=== PATIENT | female | born 1995 | race Caucasian/White ===

== ENCOUNTER 2017-01-19 17:47 | Emergency (ER) | payer BC ==
[2017-01-19] MEDS ORDERED: OXYCODONE-ACETAMINOPHEN 5-325 MG TABLET PO ONE (18:21)
[2017-01-19] MEDS ORDERED: ONDANSETRON 4 MG TAB.RAPDIS SL ONE (18:21)
--- NOTE | 2017-01-19 18:23 | ER Document Report ---
ED Medical Screen (RME) - General Chief Complaint: Abdominal Pain Stated Complaint: ABDOMINAL PAIN Time Seen by Provider: 01/19/17 18:19 Mode of Arrival: Ambulatory Information source: Patient TRAVEL OUTSIDE OF THE [place] IN LAST 30 DAYS: No - HPI Patient complains to provider of: Abdominal pain, nausea and vomiting Onset: Yesterday Onset/Duration: Persistent Quality of pain: Achy, Cramping Severity: Moderate Pain Level: 3 Associated Symptoms: Nausea, Vomiting Exacerbated by: Denies Relieved by: Denies Notes: 01/19/17 18:22 Patient is a 21-year-old female who presents to the emergency room with abdominal pain with nausea and vomiting that started yesterday evening, she reports pain in the suprapubic region radiating bilaterally, she has history of kidney stones but states this feels different, denies any dysuria or hematuria, no diarrhea - Related Data Allergies/Adverse Reactions: amoxicillin Allergy (Verified 01/19/17 17:49) doxycycline Allergy (Verified 01/19/17 17:49) milk Allergy (Verified 01/19/17 17:49) Past Medical History Renal/ Medical History: Denies: Hx Peritoneal Dialysis Physical Exam - Vital signs Vitals: Temp Pulse Resp BP Pulse Ox 98.6 F 102 H 17 119/72 99 01/19/17 17:49 01/19/17 17:49 01/19/17 17:49 01/19/17 17:49 01/19/17 17:49 Course - Vital Signs Vital signs: Temp Pulse Resp BP Pulse Ox 98.6 F 102 H 17 119/72 99 01/19/17 17:49 01/19/17 17:49 01/19/17 17:49 01/19/17 17:49 01/19/17 17:49
[2017-01-19 18:51] LABS: ABSOLUTE LYMPHOCYTES (AUTO) 0.6 10^3/uL (0.5-4.7); ABSOLUTE MONOCYTES (AUTO) 0.4 10^3/uL (0.1-1.4); ABSOLUTE NEUT (AUTO) 8.5 10^3/uL (1.7-8.2); BASOPHILS % (AUTO) 0.3 % (0-2); EOSINOPHILS % (AUTO) 0.2 % (0-6); LYMPHOCYTES % (AUTO) 5.8 % (13-45); MEAN CORPUSCULAR HEMOGLOBIN 30.4 pg (27.0-33.4); MEAN CORPUSCULAR HGB CONC 34.1 g/dL (32.0-36.0); MEAN CORPUSCULAR VOLUME 89 fl (80-97); MONOCYTES % (AUTO) 4.6 % (3-13); RED BLOOD COUNT 4.92 10^6/uL (3.72-5.28); RED CELL DISTRIBUTION WIDTH 13.4 % (11.5-14.0); SEGMENTED NEUTROPHILS % (AUTO) 89.1 % (42-78); WHITE BLOOD COUNT 9.6 10^3/uL (4.0-10.5)
[2017-01-19 19:11] LABS: ALANINE AMINOTRANSFERASE 39 U/L (9-52); ALBUMIN 4.8 g/dL (3.5-5.0); ALKALINE PHOSPHATASE 62 U/L (38-126); ANION GAP 12 (5-19); ASPARTATE AMINO TRANSFERASE 35 U/L (14-36); BILIRUBIN,DIRECT 0.3 mg/dL (0.0-0.4); BILIRUBIN,TOTAL 1.1 mg/dL (0.2-1.3); BLOOD UREA NITROGEN 14 mg/dL (7-20); CALCIUM 9.9 mg/dL (8.4-10.2); CARBON DIOXIDE 26 mmol/L (22-30); CHLORIDE 102 mmol/L (98-107); GLUCOSE 88 mg/dL (75-110); LIPASE 56.3 U/L (23-300); POTASSIUM 3.9 mmol/L (3.6-5.0); SODIUM 140.1 mmol/L (137-145); TOTAL PROTEIN 7.7 g/dL (6.3-8.2)
[2017-01-19 19:19] LABS: APPEARANCE,URINE SLIGHTLY-CLOUDY; BILIRUBIN,URINE NEGATIVE (NEGATIVE); GLUCOSE, URINE NEGATIVE (NEGATIVE); KETONES,URINE TRACE mg/dL (NEGATIVE); LEUKOCYTE ESTERASE,URINE MODERATE (NEGATIVE); NITRITE,URINE NEGATIVE (NEGATIVE); PROTEIN,URINE NEGATIVE (NEGATIVE); URINE SPECIFIC GRAVITY 1.031; UROBILINOGEN,URINE NEGATIVE mg/dL (<2.0)
--- NOTE | 2017-01-19 20:41 | ER Document Report ---
ED General - General Chief Complaint: Abdominal Pain Stated Complaint: ABDOMINAL PAIN Time Seen by Provider: 01/19/17 18:19 Mode of Arrival: Ambulatory Notes: Patient is a 21-year-old female without past medical history who presents with 2 days of progressively worsening lower abdominal pain. Does describe it as a dull, constant, burning, aching pain in her suprapubic region. Nothing improves or worsens the pain. Denies any history of similar symptoms in the past. Denies any vaginal bleeding, discharge, dysuria, or risks for sexually transmitted infections. She has never had similar symptoms in the past. She is visiting from out of town and has not been able to see her primary doctor regarding today's concerns. She has not had any associated vomiting or diarrhea. TRAVEL OUTSIDE OF THE [place] IN LAST 30 DAYS: No - Related Data Allergies/Adverse Reactions: amoxicillin Allergy (Verified 01/19/17 17:49) doxycycline Allergy (Verified 01/19/17 17:49) milk Allergy (Verified 01/19/17 17:49) Past Medical History - General Information source: Patient - Social History Smoking Status: Never Smoker Chew tobacco use (# tins/day): No Frequency of alcohol use: None Drug Abuse: None Lives with: Spouse/Significant other Family History: Reviewed & Not Pertinent Patient has suicidal ideation: No Patient has homicidal ideation: No Renal/ Medical History: Denies: Hx Peritoneal Dialysis Surgical Hx: Negative Review of Systems - Review of Systems Notes: Constitutional: Negative for fever. HENT: Negative for sore throat. Eyes: Negative for visual changes. Cardiovascular: Negative for chest pain. Respiratory: Negative for shortness of breath. Gastrointestinal: Positive for abdominal pain, negative for vomiting or diarrhea. Genitourinary: Negative for dysuria. Musculoskeletal: Negative for back pain. Skin: Negative for rash. Neurological: Negative for headaches, weakness or numbness. 10 point ROS negative except as marked above and in HPI. Physical Exam - Vital signs Vitals: Temp Pulse Resp BP Pulse Ox 98.6 F 102 H 17 119/72 99 01/19/17 17:49 01/19/17 17:49 01/19/17 17:49 01/19/17 17:49 01/19/17 17:49 Interpretation: Tachycardic Notes: PHYSICAL EXAMINATION: GENERAL: Well-appearing, well-nourished and in no acute distress. HEAD: Atraumatic, normocephalic. EYES: Pupils equal round and reactive to light, extraocular movements intact, sclera anicteric, conjunctiva are normal. ENT: nares patent, oropharynx clear without exudates. Moist mucous membranes. NECK: Normal range of motion, supple without lymphadenopathy LUNGS: Breath sounds clear to auscultation bilaterally and equal. No wheezes rales or rhonchi. HEART: Regular rate and rhythm without murmurs ABDOMEN: Soft, mild significant abdominal tenderness to palpation. No rebound or guarding. Back: No cervical motion tenderness. No focal adnexal tenderness. Mild suprapubic abdominal tenderness. Scant white vaginal discharge EXTREMITIES: Normal range of motion, no pitting or edema. No cyanosis. NEUROLOGICAL: No focal neurological deficits. Moves all extremities spontaneously and on command. PSYCH: Normal mood, normal affect. SKIN: Warm, Dry, normal turgor, no rashes or lesions noted. Course - Re-evaluation Re-evalutation: 01/19/17 21:29 Patient is an overall well-appearing female in no acute distress at time of assessment some mild suprapubic abdominal tenderness. On pelvic examination she has again mild duplicate tenderness without any focal adnexal tenderness. No cervical motion tenderness. However, her swabs are positive for chlamydia raising concern that this could be pelvic inflammatory disease in the setting of the sexually transmitted infection. She has no focal right lower quadrant tenderness, rebound or guarding. Remainder of her laboratories unremarkable without evidence of leukocytosis. No upper abdominal pain to suggest either pancreatitis or biliary pathology. She is not and her urinalysis does not demonstrate any findings consistent with cystitis or pyelonephritis. After pelvic examination risks and benefits conversational proceeding with CT of the abdomen and pelvis to identify alternative pathology including possibly an early presentation of appendicitis was discussed at length with the patient. She elected to proceed with a CT of the abdomen and pelvis. Unfortunately the CT scan could not definitively identify the appendix. However there are no definitive secondary signs of appendicitis. At this time Elbow clinical suspicion for an acute appendicitis is low as patient does not have any focal right lower quadrant tenderness, no fever, and no leukocytosis. Have informed the patient that her appendix was not definitively identified and that she needs to continue to be vigilant at home for any signs that she could be progressing to this diagnosis. I have also instructed her to take the antibiotics as directed and she will be treated with both azithromycin and ceftriaxone prior to discharge as well as a course of Flagyl as an outpatient. She has a true allergy to doxycycline so this is not an option. At this time will discharge with return precautions and follow-up recommendations. Verbal discharge instructions given a the bedside and opportunity for questions given. Medication warnings reviewed. Patient is in agreement with this plan and has verbalized understanding of return precautions and the need for primary care follow-up in the next 24-72 hours. - Vital Signs Vital signs: Temp Pulse Resp BP Pulse Ox 98.6 F 102 H 17 119/72 99 01/19/17 17:49 01/19/17 17:49 01/19/17 17:49 01/19/17 17:49 01/19/17 17:49 - Laboratory Result Diagrams: 01/19/17 18:35 01/19/17 18:35 Laboratory results interpreted by me: 01/19/17 01/19/17 01/19/17 18:35 18:35 19:44 Seg Neutrophils % 89.1 H Lymphocytes % 5.8 L Absolute Neutrophils 8.5 H Urine Ketones TRACE H Ur Leukocyte Esterase MODERATE H Chlamydia DNA (PCR) DETECTED H - Diagnostic Test Radiology reviewed: Reports reviewed Discharge - Discharge Clinical Impression: Pelvic inflammatory disease, Chlamydia Abdominal pain Qualifiers: Abdominal location: lower abdomen, unspecified Qualified Code(s): R10.30 - Lower abdominal pain, unspecified Condition: Good Disposition: HOME, SELF-CARE Instructions: Observation for Appendicitis ([facility]) Additional Instructions: Your are being treated for pelvic inflammatory disease. You are being started on 2 different antibiotics and you need to take these until you finish them. Please return if you have worsening pain, persistent vomiting, spike a fever greater than 101F, or have any other symptoms that are concerning to you. Please follow closely with you primary care physician or your PLASTIC BOAT BUFFER at your earliest ability. Please also be vigilant about monitoring for signs that she could have appendicitis including worsening abdominal pain, fever, vomiting or any other symptoms that are worrisome to you. Prescriptions: Metronidazole [Flagyl 500 mg Tablet] 500 mg PO Q6H #28 tablet
[2017-01-19 21:25] LABS: CHLAM PCR DETECTED (NOT DETECT)
--- NOTE | 2017-01-19 21:26 | RADIOLOGY REPORT (SQ) ---
EXAM DESCRIPTION: CT ABD/PELVIS WITH IV ONLY COMPLETED DATE/TIME: 01/19/2017 8:59 pm REASON FOR STUDY: eval lower ab pain, appy COMPARISON: None. TECHNIQUE: CT scan of the abdomen and pelvis performed using helical scanning technique with dynamic intravenous contrast injection. No oral contrast. Images reviewed with lung, soft tissue, and bone windows. Reconstructed coronal and sagittal MPR images reviewed. Delayed images for evaluation of the urinary system also acquired. All images stored on PACS. All CT scanners at this facility use dose modulation, iterative reconstruction, and/or weight based d osing when appropriate to reduce radiation dose to as low as reasonably achievable (ALARA). [facility]: Dose Right [facility]: CareDose [facility]: Dose Right [facility]: Teradose 4D [facility]: HotDesk CONTRAST TYPE AND DOSE: 66mL Isovue 370 RENAL FUNCTION: Creatinine 0.70 RADIATION DOSE: 12.03mGy. LIMITATIONS: Study is limited somewhat due to the relative paucity of mesenteric and retroperitoneal fat making delineation of abdominal and pelvic structures somewhat difficult FINDINGS: LOWER CHEST: No significant findings. No nodules or infiltrates. LIVER: Normal size. No masses or dilated ducts. SPLEEN: Normal size. No focal lesions. PANCREAS: No masses. No significant calcifications. No adjacent inflammation or peripancreatic fluid collections. Pancreatic duct not dilated. GALLBLADDER: No identified stones by CT criteria. No inflammatory changes to suggest cholecystitis. ADRENAL GLANDS: No significant masses or asymmetry. RIGHT KIDNEY AND URETER: There is a 1.5 cm in diameter indeterminate relative low density area which is too small to further characterize by CT. If clinically warranted ultrasound may be of value for f urther evaluation. No significant calcifications. No hydronephrosis or hydroureter. LEFT KIDNEY AND URETER: No solid masses. No significant calcifications. No hydronephrosis or hydr oureter. AORTA AND VESSELS: No aneurysm. No dissection. Renal arteries, SMA, celiac without stenosis. RETROPERITONEUM: No retroperitoneal adenopathy, hemorrhage or masses. BOWEL AND PERITONEAL CAVITY: No masses or inflammatory changes. No free fluid or peritoneal masses. APPENDIX: Not identified PELVIS: No mass or free fluid. Normal bladder. ABDOMINAL WALL: No masses. No hernias. BONES: No significant or acute findings. OTHER: No other significant finding. IMPRESSION: The appendix is not definitely identified. There are no secondary signs of appendicitis . 1.5 cm in diameter indeterminate relative low density area in the right kidney which is too small to further characterize by CT. If clinically warranted ultrasound may be of value for further evalua tion. Other findings as noted above TECHNICAL DOCUMENTATION: JOB ID: [id number] Quality ID # [id number]: Final reports with documentation of one or more dose reduction techniques (e.g., Au tomated exposure control, adjustment of the mA and/or kV according to patient size, use of iterative reconstruction technique) 2010 [employer]- All Rights Reserved
[2017-01-19] MEDS ORDERED: CEFTRIAXONE INJ 250 MG VIAL IM ONE (21:38)
[2017-01-19] MEDS ORDERED: LIDOCAINE 1% INJ-PF (10 MG/ML) 30 ML SDV INFIL ONE (21:38)
[2017-01-19] MEDS ORDERED: AZITHROMYCIN 250 MG TABLET PO ONE (21:38)
[2017-01-19 22:49] VITALS: BP 116/70
== END 2017-01-19 22:09 | disposition home or self-care (01) ==
LOC: ER 17:47
DX: A56.11 Chlamydial female pelvic inflammatory disease (principal); R10.30 Lower abdominal pain, unspecified; R00.0 Tachycardia, unspecified; Z88.0 Allergy status to penicillin; Z91.011 Allergy to milk products
CPT/HCPCS: 99284; 96372; 36415; 87086; 87210; 83690; 84703; 85025; 80053; 81001; 87491; 87591; 74177; S0119; J3490; J0696

== ENCOUNTER 2017-04-17 13:15 | Emergency (ER) | payer BC ==
--- NOTE | 2017-04-17 14:31 | ER Document Report ---
HPI - HPI Patient complains to provider of: nausea Pain Level: 0 Context: 21 yo female c/o nausea x several days. no abdominal pain Associated Symptoms: None Exacerbated by: Denies Relieved by: Denies Similar symptoms previously: No Recently seen / treated by doctor: No - ROS Systems Reviewed and Negative: Yes All other systems reviewed and negative - DERM Skin Color: Normal Past Medical History - General Information source: Patient - Social History Smoking Status: Never Smoker Frequency of alcohol use: None Drug Abuse: None Lives with: Family Family History: Reviewed & Not Pertinent Patient has suicidal ideation: No Patient has homicidal ideation: No - Medical History Medical History: Negative Renal/ Medical History: Denies: Hx Peritoneal Dialysis Vertical Provider Document - CONSTITUTIONAL Agree With Documented VS: Yes Exam Limitations: No Limitations General Appearance: WD/WN, No Apparent Distress - INFECTION CONTROL TRAVEL OUTSIDE OF THE [place] IN LAST 30 DAYS: No - HEENT HEENT: Atraumatic, Conjuctival Injection - NECK Neck: Normal Inspection, Supple - RESPIRATORY Respiratory: Breath Sounds Normal, No Respiratory Distress - CARDIOVASCULAR Cardiovascular: Regular Rate, Regular Rhythm - GI/ABDOMEN Gastrointestinal: Abdomen Soft, Abdomen Non-Tender - NEURO Level of Consciousness: Awake, Alert, Appropriate - DERM Integumentary: Warm, Dry, No Rash Discharge - Discharge Clinical Impression: Nausea Condition: Stable Disposition: HOME, SELF-CARE Instructions: Nausea or Vomiting, Nonspecific ([facility]) Additional Instructions: Your test was negative today Maury diet as tolerated Follow up with your primary care if symptoms persist Prescriptions: Ondansetron HCl [Zofran 8 mg Tablet] 8 mg PO TID PRN #10 tablet PRN Reason:
[2017-04-17 15:58] VITALS: BP 108/57
== END 2017-04-17 15:58 | disposition home or self-care (01) ==
LOC: ER 13:15
DX: R11.0 Nausea (principal)
CPT/HCPCS: 36415; 84703; 99281

== ENCOUNTER 2017-06-25 19:21 | Emergency (ER) | payer BC, OTHER ==
[2017-06-25 20:52] LABS: AMORPHOUS SEDIMENT,URINE TRACE /HPF; APPEARANCE,URINE SLIGHTLY-CLOUDY; BILIRUBIN,URINE NEGATIVE (NEGATIVE); GLUCOSE, URINE NEGATIVE (NEGATIVE); KETONES,URINE NEGATIVE (NEGATIVE); LEUKOCYTE ESTERASE,URINE TRACE (NEGATIVE); NITRITE,URINE NEGATIVE (NEGATIVE); PROTEIN,URINE NEGATIVE (NEGATIVE); URINE SPECIFIC GRAVITY 1.025; UROBILINOGEN,URINE NEGATIVE mg/dL (<2.0)
--- NOTE | 2017-06-25 20:52 | ER Document Report ---
ED General - General Chief Complaint: Nausea/Vomiting/Diarrhea Stated Complaint: VOMITING Time Seen by Provider: 06/25/17 20:15 Mode of Arrival: Ambulatory Information source: Patient Notes: Patient presents stating that she developed nausea vomiting and some loose stool after eating [place]uvian food today. She states her had similar symptoms. She also had some mild diffuse abdominal cramping. She states she is now feeling better and is been able to tolerate fluids. Nothing made the pain better or worse. There is no radiation of the symptoms. Symptoms have been constant and moderate although they are improving. She denies any vaginal bleeding or discharge. TRAVEL OUTSIDE OF THE [place] IN LAST 30 DAYS: No - Related Data Allergies/Adverse Reactions: amoxicillin Allergy (Verified 04/17/17 13:49) doxycycline Allergy (Verified 04/17/17 13:49) milk Allergy (Verified 04/17/17 13:49) Past Medical History - General Information source: Patient - Social History Smoking Status: Never Smoker Chew tobacco use (# tins/day): No Frequency of alcohol use: None Drug Abuse: None Family History: Reviewed & Not Pertinent Patient has suicidal ideation: No Patient has homicidal ideation: No Renal/ Medical History: Reports: Hx Kidney Stones. Denies: Hx Peritoneal Dialysis Past Surgical History: Reports: Hx Tonsillectomy - Immunizations Hx Diphtheria, Pertussis, Tetanus Vaccination: Yes Review of Systems - Review of Systems Constitutional: denies: Chills, Fever Cardiovascular: denies: Chest pain, Dyspnea Respiratory: denies: Cough, Short of breath Gastrointestinal: Nausea, Vomiting -: Yes All other systems reviewed and negative Physical Exam - Vital signs Vitals: Temp Pulse Resp BP Pulse Ox 98.7 F 89 20 127/74 H 100 06/25/17 19:49 06/25/17 19:49 06/25/17 19:49 06/25/17 19:49 06/25/17 19:49 Interpretation: Normal - General General appearance: Appears well, Alert - HEENT Head: Normocephalic, Atraumatic Eyes: Normal Pupils: PERRL - Respiratory Respiratory status: No respiratory distress Chest status: Nontender Breath sounds: Normal Chest palpation: Normal - Cardiovascular Rhythm: Regular Heart sounds: Normal auscultation Murmur: No - Abdominal Inspection: Normal Distension: No distension Bowel sounds: Normal Tenderness: Nontender Organomegaly: No organomegaly - Back Back: Normal, Nontender - Extremities General upper extremity: Normal inspection, Nontender, Normal color, Normal ROM , Normal temperature General lower extremity: Normal inspection, Nontender, Normal color, Normal ROM , Normal temperature, Normal weight bearing. No: Afia's sign - Neurological Neuro grossly intact: Yes Cognition: Normal Orientation: AAOx4 [place] Coma Scale Eye Opening: Spontaneous [place] Coma Scale Verbal: Oriented [place] Coma Scale Motor: Obeys Commands [place] Coma Scale Total: 15 Speech: Normal Motor strength normal: LUE, RUE, LLE, RLE Sensory: Normal - Psychological Associated symptoms: Normal affect, Normal mood - Skin Skin Temperature: Warm Skin Moisture: Dry Skin Color: Normal Course - Vital Signs Vital signs: Temp Pulse Resp BP Pulse Ox 98.7 F 89 20 127/74 H 100 06/25/17 19:49 06/25/17 19:49 06/25/17 19:49 06/25/17 19:49 06/25/17 19:49 Discharge - Discharge Condition: Stable Disposition: HOME, SELF-CARE Additional Instructions: Your blood pressure is mildly elevated. Please have this rechecked within 1 week by your physician. Forms: Elevated Blood Pressure
[2017-06-25 21:11] VITALS: BP 115/64
== END 2017-06-25 21:12 | disposition home or self-care (01) ==
LOC: ER 19:21
DX: R11.2 Nausea with vomiting, unspecified (principal); R19.7 Diarrhea, unspecified; Z87.442 Personal history of urinary calculi; Z88.0 Allergy status to penicillin; Z91.011 Allergy to milk products
CPT/HCPCS: 81001; 99283

== ENCOUNTER 2017-07-13 19:22 | Emergency (ER) | payer BC, OTHER ==
--- NOTE | 2017-07-13 20:09 | ER Document Report ---
ED Medical Screen (RME) - General Chief Complaint: Flu Symptoms Stated Complaint: FLU LIKE SYMPTOMS Time Seen by Provider: 07/13/17 20:06 Mode of Arrival: Ambulatory Information source: Patient TRAVEL OUTSIDE OF THE [place] IN LAST 30 DAYS: No - HPI Patient complains to provider of: flu-like symptoms Onset: This afternoon - pt. is approx 12 weeks and has developed generalized arthralgias and myalgias with chills and lowgrade fever. Did get flu shot earlier this yr. - Related Data Allergies/Adverse Reactions: amoxicillin Allergy (Verified 04/17/17 13:49) doxycycline Allergy (Verified 04/17/17 13:49) milk Allergy (Verified 04/17/17 13:49) polyethylene glycol 3350 [From Miralax] Allergy (Verified 07/13/17 20:04) Home Medications: Current Home Medications No Home Medications 07/13/17 [History] Past Medical History - Social History Chew tobacco use (# tins/day): No Frequency of alcohol use: None Drug Abuse: None Renal/ Medical History: Reports: Hx Kidney Stones. Denies: Hx Peritoneal Dialysis Past Surgical History: Reports: Hx Tonsillectomy - Immunizations Hx Diphtheria, Pertussis, Tetanus Vaccination: Yes History of Influenza Vaccine for 05/2017 - 10/2017 Season: No Physical Exam - Vital signs Vitals: Temp Pulse Resp BP Pulse Ox 100.1 F 108 H 18 134/76 H 100 07/13/17 19:54 07/13/17 19:54 07/13/17 19:54 07/13/17 19:54 07/13/17 19:54 Course - Vital Signs Vital signs: Temp Pulse Resp BP Pulse Ox 100.1 F 108 H 18 134/76 H 100 07/13/17 19:54 07/13/17 19:54 07/13/17 19:54 07/13/17 19:54 07/13/17 19:54
[2017-07-13 20:47] LABS: AMORPHOUS SEDIMENT,URINE TRACE /HPF; APPEARANCE,URINE CLOUDY; BILIRUBIN,URINE NEGATIVE (NEGATIVE); GLUCOSE, URINE NEGATIVE (NEGATIVE); KETONES,URINE NEGATIVE (NEGATIVE); LEUKOCYTE ESTERASE,URINE TRACE (NEGATIVE); NITRITE,URINE NEGATIVE (NEGATIVE); PROTEIN,URINE NEGATIVE (NEGATIVE); URINE SPECIFIC GRAVITY 1.011; UROBILINOGEN,URINE NEGATIVE mg/dL (<2.0)
[2017-07-13 20:48] LABS: ABSOLUTE LYMPHOCYTES (AUTO) 0.5 10^3/uL (0.5-4.7); ABSOLUTE MONOCYTES (AUTO) 0.3 10^3/uL (0.1-1.4); ABSOLUTE NEUT (AUTO) 3.4 10^3/uL (1.7-8.2); BASOPHILS % (AUTO) 0.3 % (0-2); EOSINOPHILS % (AUTO) 0.1 % (0-6); HEMATOCRIT 36.9 % (36.0-47.0); HGB HCT DIFFERENCE 2.1; LYMPHOCYTES % (AUTO) 12.5 % (13-45); MEAN CORPUSCULAR HEMOGLOBIN 30.5 pg (27.0-33.4); MEAN CORPUSCULAR HGB CONC 35.3 g/dL (32.0-36.0); MEAN CORPUSCULAR VOLUME 86 fl (80-97); MONOCYTES % (AUTO) 6.8 % (3-13); RED BLOOD COUNT 4.28 10^6/uL (3.72-5.28); RED CELL DISTRIBUTION WIDTH 12.7 % (11.5-14.0); SEGMENTED NEUTROPHILS % (AUTO) 80.3 % (42-78); WHITE BLOOD COUNT 4.2 10^3/uL (4.0-10.5)
[2017-07-13 21:00] LABS: ALANINE AMINOTRANSFERASE 88 U/L (9-52); ALBUMIN 4.3 g/dL (3.5-5.0); ALKALINE PHOSPHATASE 58 U/L (38-126); ANION GAP 11 (5-19); ASPARTATE AMINO TRANSFERASE 70 U/L (14-36); BILIRUBIN,DIRECT 0.2 mg/dL (0.0-0.4); BILIRUBIN,TOTAL 0.4 mg/dL (0.2-1.3); BLOOD UREA NITROGEN 6 mg/dL (7-20); CALCIUM 9.4 mg/dL (8.4-10.2); CARBON DIOXIDE 24 mmol/L (22-30); CHLORIDE 103 mmol/L (98-107); CREATININE RESULT 0.54 mg/dL (0.52-1.25); GLUCOSE 100 mg/dL (75-110); POTASSIUM 3.6 mmol/L (3.6-5.0); SODIUM 137.9 mmol/L (137-145); TOTAL PROTEIN 6.7 g/dL (6.3-8.2)
[2017-07-13] MEDS ORDERED: ACETAMINOPHEN 325 MG TABLET PO ONE (21:38)
[2017-07-13] MEDS ORDERED: NORMAL SALINE 1000 ML 1,000 ML IV PRN (21:55)
--- NOTE | 2017-07-13 22:00 | ER Document Report ---
ED Flu Like - General Chief Complaint: Flu Symptoms Stated Complaint: FLU LIKE SYMPTOMS Time Seen by Provider: 07/13/17 20:06 Mode of Arrival: Ambulatory TRAVEL OUTSIDE OF THE [place] IN LAST 30 DAYS: No - HPI Patient complains to provider of: Chills, body aches Onset: This morning Timing/Duration: Persistent Quality of pain: Achy Severity: Mild Pain Level: 2 Associated symptoms: Body/muscle aches, Chills, Headache, Nausea Similar symptoms previously: No Recently seen / treated by doctor: Yes Notes: Patient is a 21-year-old female , approximately 12 weeks , presenting to the emergency room for body aches, headache, chills, vomiting 1 episode today, she denies any sick contacts, no cough or congestion, no sore throat, no ear pain - Related Data Allergies/Adverse Reactions: amoxicillin Allergy (Verified 04/17/17 13:49) doxycycline Allergy (Verified 04/17/17 13:49) milk Allergy (Verified 04/17/17 13:49) polyethylene glycol 3350 [From Miralax] Allergy (Verified 07/13/17 20:04) Past Medical History - General Information source: Patient - Social History Smoking Status: Never Smoker Chew tobacco use (# tins/day): No Frequency of alcohol use: None Drug Abuse: None Family History: Reviewed & Not Pertinent Patient has suicidal ideation: No Patient has homicidal ideation: No Renal/ Medical History: Reports: Hx Kidney Stones. Denies: Hx Peritoneal Dialysis Past Surgical History: Reports: Hx Tonsillectomy - Immunizations Hx Diphtheria, Pertussis, Tetanus Vaccination: Yes Review of Systems - Review of Systems Constitutional: See HPI EENT: No symptoms reported Cardiovascular: No symptoms reported Respiratory: No symptoms reported Gastrointestinal: See HPI Genitourinary: No symptoms reported Female Genitourinary: Musculoskeletal: See HPI Skin: No symptoms reported Hematologic/Lymphatic: No symptoms reported Neurological/Psychological: Headaches -: Yes All other systems reviewed and negative Physical Exam - Vital signs Vitals: Temp Pulse Resp BP Pulse Ox 100.1 F 108 H 18 134/76 H 100 07/13/17 19:54 07/13/17 19:54 07/13/17 19:54 07/13/17 19:54 07/13/17 19:54 Interpretation: Tachycardic, Febrile - General General appearance: Appears well, Alert - HEENT Head: Normocephalic, Atraumatic Eyes: Normal Conjunctiva: Normal Extraocular movements intact: Yes Eyelashes: Normal Pupils: PERRL Ears: Normal External canal: Normal Tympanic membrane: Normal Sinus: Normal Nasal: Normal Mouth/Lips: Normal Mucous membranes: Normal Pharynx: Normal Neck: Normal - Respiratory Respiratory status: No respiratory distress Chest status: Nontender Breath sounds: Normal Chest palpation: Normal - Cardiovascular Rhythm: Regular Heart sounds: Normal auscultation Murmur: No - Abdominal Inspection: Normal Distension: No distension Bowel sounds: Normal Tenderness: Nontender Organomegaly: No organomegaly - Back Back: Normal, Nontender - Extremities General upper extremity: Normal inspection, Nontender, Normal color, Normal ROM , Normal temperature General lower extremity: Normal inspection, Nontender, Normal color, Normal ROM , Normal temperature, Normal weight bearing. No: Afia's sign - Neurological Neuro grossly intact: Yes Cognition: Normal Orientation: AAOx4 [place] Coma Scale Eye Opening: Spontaneous [place] Coma Scale Verbal: Oriented [place] Coma Scale Motor: Obeys Commands [place] Coma Scale Total: 15 Speech: Normal Motor strength normal: LUE, RUE, LLE, RLE Sensory: Normal - Psychological Associated symptoms: Normal affect, Normal mood - Skin Skin Temperature: Warm Skin Moisture: Dry Skin Color: Normal Course - Re-evaluation Re-evalutation: 07/13/17 23:39 Patient reports feeling much better after IV fluids, lab findings were discussed at bedside which are positive for influenza A and B, with mild elevation of liver enzymes, likely from viral illness and vomiting earlier, treatment with Tamiflu was discussed including risks and benefits of treatment, patient was given a prescription and advised to discuss this treatment with her SUBMARINE ADVISORY TEAM WATCH OFFICER, drink plenty of fluids, get plenty of rest, take Tylenol as needed for fever or body aches, follow-up with SUBMARINE ADVISORY TEAM WATCH OFFICER in 2-3 days or return if symptoms worsen, patient acknowledges understanding and agreement with this plan - Vital Signs Vital signs: Temp Pulse Resp BP Pulse Ox 100.1 F 108 H 18 134/76 H 100 07/13/17 19:54 07/13/17 19:54 07/13/17 19:54 07/13/17 19:54 07/13/17 19:54 - Laboratory Result Diagrams: 07/13/17 20:35 07/13/17 20:35 Laboratory results interpreted by me: 07/13/17 07/13/17 07/13/17 19:57 20:35 20:35 Seg Neutrophils % 80.3 H Lymphocytes % 12.5 L BUN 6 L AST 70 H ALT 88 H Ur Leukocyte Esterase TRACE H Discharge - Discharge Clinical Impression: Influenza A, Influenza B Qualifiers: Weeks of gestation: 12 weeks Qualified Code(s): Z3A.12 - 12 weeks gestation of Condition: Stable Disposition: HOME, SELF-CARE Instructions: Acetaminophen, Influenza ([facility]) 2886-7323 Additional Instructions: Drink plenty of fluids. Tylenol as needed for fever. Follow-up with your OB/ EQUIPMENT ANALYST in one to 2 days. Return to the emergency room immediately if symptoms worsen or any additional concerns. Prescriptions: Metoclopramide HCl [Reglan 10 mg Tablet] 1 - 2 tab PO ASDIR PRN #25 tablet PRN Reason: Oseltamivir Phosphate [Tamiflu 75 mg Capsule] 75 mg PO BID #10 capsule Referrals: ROSSI HICKS MD [Primary Care Provider] - Follow up as needed
[2017-07-13 23:51] VITALS: BP 105/55
== END 2017-07-13 23:50 | disposition home or self-care (01) ==
LOC: ER 19:22
DX: O26.91 Pregnancy related conditions, unspecified, first trimester (principal); J11.1 Influenza due to unidentified influenza virus with other respiratory manifestations; M79.1 Myalgia; R51 Headache; R11.0 Nausea; Z3A.12 12 weeks gestation of pregnancy; Z88.0 Allergy status to penicillin; Z91.011 Allergy to milk products
CPT/HCPCS: 99283; 96360; 36415; 85025; 80053; 81001; 87804; J7030

== ENCOUNTER 2018-07-05 15:17 | Emergency (ER) | payer BC, OTHER ==
[2018-07-05 15:21] VITALS: BP 119/59
--- NOTE | 2018-07-05 15:34 | ER Document Report ---
ED Medical Screen (RME) - General Chief Complaint: Rectal Bleeding Stated Complaint: ABNORMAL BLEEDING Time Seen by Provider: 07/05/18 15:29 Notes: 22-year-old female patient reports 5-day history of passing blood with clots from the rectum. She states when she labored 5 months ago she did have a small anal fissure, and has never had hemorrhoids that she knows of. She has not had a period since she delivered, and is not on control. I have greeted and performed a rapid initial assessment of this patient. A comprehensive ED assessment and evaluation of the patient, analysis of test results and completion of the medical decision making process will be conducted by additional ED providers. TRAVEL OUTSIDE OF THE [place] IN LAST 30 DAYS: No - Related Data Allergies/Adverse Reactions: amoxicillin Allergy (Verified 07/05/18 15:18) doxycycline Allergy (Verified 07/05/18 15:18) milk Allergy (Verified 07/05/18 15:18) polyethylene glycol 3350 [From Miralax] Allergy (Verified 07/05/18 15:18) Past Medical History - Social History Frequency of alcohol use: None Drug Abuse: None Renal/ Medical History: Reports: Hx Kidney Stones. Denies: Hx Peritoneal Dialysis Past Surgical History: Reports: Hx Tonsillectomy - Immunizations Hx Diphtheria, Pertussis, Tetanus Vaccination: Yes History of Influenza Vaccine for 05/2017 - 10/2017 Season: No Physical Exam - Vital signs Vitals: Temp Pulse Resp BP Pulse Ox 99.0 F 88 12 119/59 L 98 07/05/18 15:20 07/05/18 15:20 07/05/18 15:20 07/05/18 15:20 07/05/18 15:20 Course - Vital Signs Vital signs: Temp Pulse Resp BP Pulse Ox 99.0 F 88 12 119/59 L 98 07/05/18 15:20 07/05/18 15:20 07/05/18 15:20 07/05/18 15:20 07/05/18 15:20 Doctor's Discharge - Discharge Referrals: ROSSI HICKS MD [Primary Care Provider] - Follow up as needed
[2018-07-05 16:09] LABS: ABSOLUTE LYMPHOCYTES (AUTO) 1.2 10^3/uL (0.5-4.7); ABSOLUTE MONOCYTES (AUTO) 0.5 10^3/uL (0.1-1.4); ABSOLUTE NEUT (AUTO) 4.2 10^3/uL (1.7-8.2); BASOPHILS % (AUTO) 0.6 % (0-2); EOSINOPHILS % (AUTO) 0.6 % (0-6); HEMATOCRIT 38.9 % (36.0-47.0); HEMOGLOBIN 13.2 g/dL (12.0-15.5); LYMPHOCYTES % (AUTO) 20.2 % (13-45); MEAN CORPUSCULAR VOLUME 88 fl (80-97); PLATELET COUNT 219 10^3/uL (150-450); RED BLOOD COUNT 4.41 10^6/uL (3.72-5.28); RED CELL DISTRIBUTION WIDTH 14.1 % (11.5-14.0); SEGMENTED NEUTROPHILS % (AUTO) 70.6 % (42-78); TOTAL CELLS COUNTED % (AUTO) 100 %
--- NOTE | 2018-07-05 16:28 | ER Document Report ---
ED General - General Chief Complaint: Rectal Bleeding Stated Complaint: ABNORMAL BLEEDING Time Seen by Provider: 07/05/18 15:29 Notes: Patient is a 22-year-old female that presents to the emergency department for chief complaint of rectal bleeding. Patient states she has been having rectal bleeding over the past 5 days, she has had some small clots, associated with this. It occurs with bowel movements, and will have continued episodes 4-5 hours after the bowel movement, of small amounts of blood per rectum. She states it is bright red, denies melena, or dark stools. Denies having any pain associated with this. She has not had this in the past. Denies having any lightheadedness, dizziness, nausea, vomiting or diarrhea associated with it. She also denies having any dysuria, hematuria, or menstrual bleeding. She is currently breast-feeding. Past Medical History: Denies chronic medical conditions Past Surgical History: Tonsillectomy Social History: Denies tobacco, alcohol or drug use Family History: Reviewed and noncontributory for presenting illness Allergies: Reviewed, see documented allergy list. REVIEW OF SYSTEMS: Other than noted above, the 12 point review of systems was reviewed with the patient and were negative, all pertinent findings are included in the HPI. PHYSICAL EXAMINATION: Vital signs reviewed, nursing noted reviewed. GENERAL: Well-appearing, well-nourished and in no acute distress. HEAD: Atraumatic, normocephalic. EYES: Eyes appear normal, extraocular movements intact, sclera anicteric, conjunctiva are normal. ENT: nares patent, oropharynx clear without exudates. Moist mucous membranes. NECK: Normal range of motion, supple without lymphadenopathy LUNGS: Breath sounds clear to auscultation bilaterally and equal. No wheezes rales or rhonchi. HEART: Regular rate and rhythm without murmurs ABDOMEN: Soft, nontender, normoactive bowel sounds. No rebound, guarding, or rigidity. No masses appreciated. EXTREMITIES: Nontender, good range of motion, no pitting or edema. NEUROLOGICAL: No focal neurological deficits. Moves all extremities spontaneously Motor and sensory grossly intact on exam. PSYCH: Normal mood, normal affect. SKIN: Warm, Dry, normal turgor, no rashes or lesions noted on exposed skin TRAVEL OUTSIDE OF THE [place] IN LAST 30 DAYS: No - Related Data Allergies/Adverse Reactions: amoxicillin Allergy (Verified 07/05/18 15:18) doxycycline Allergy (Verified 07/05/18 15:18) milk Allergy (Verified 07/05/18 15:18) polyethylene glycol 3350 [From Miralax] Allergy (Verified 07/05/18 15:18) Past Medical History - Social History Smoking Status: Never Smoker Frequency of alcohol use: None Drug Abuse: None Family History: Reviewed & Not Pertinent Patient has suicidal ideation: No Patient has homicidal ideation: No Renal/ Medical History: Reports: Hx Kidney Stones. Denies: Hx Peritoneal Dialysis Past Surgical History: Reports: Hx Tonsillectomy - Immunizations Hx Diphtheria, Pertussis, Tetanus Vaccination: Yes Physical Exam - Vital signs Vitals: Temp Pulse Resp BP Pulse Ox 99.0 F 88 12 119/59 L 98 07/05/18 15:20 07/05/18 15:20 07/05/18 15:20 07/05/18 15:20 07/05/18 15:20 Course - Re-evaluation Re-evalutation: Patient seen and examined vital signs reviewed. Laboratory data was ordered as appropriate for the patient's presenting symptoms and complaint, with consideration of any critical or life threatening conditions that may be associated with their obtained history and exam as noted above. Results were reviewed when available and demonstrated no anemia The patient was re-evaluated and was stable, patient's symptoms seem most consistent with an internal hemorrhoid, with recent , and painless blood per rectum, no anemia. Advised the patient to follow-up with either a surgeon or gastroenterology, given referrals to both. Evaluation was most consistent with painless rectal bleeding Results were discussed with the patient at this point, after careful consideration I feel that that patient can be discharged from the emergency department, the patient was educated treatments and reasons to return to the emergency department based on their presumed diagnosis as noted above, they were advised to followup with a primary care physician in 2-3 days. Patient was agreeable to plan of care. *Note is created using voice recognition software and may contain spelling, syntax or grammatical errors. Laboratory 07/05/18 07/05/18 07/05/18 15:44 15:44 15:44 WBC 6.0 RBC 4.41 Hgb 13.2 Hct 38.9 MCV 88 MCH 30.0 MCHC 34.0 RDW 14.1 H Plt Count 219 Seg Neutrophils % 70.6 Lymphocytes % 20.2 Monocytes % 8.0 Eosinophils % 0.6 Basophils % 0.6 Absolute Neutrophils 4.2 Absolute Lymphocytes 1.2 Absolute Monocytes 0.5 Absolute Eosinophils 0.0 Absolute Basophils 0.0 Sodium 142.2 Potassium 4.2 Chloride 103 Carbon Dioxide 27 Anion Gap 12 BUN 17 Creatinine 0.96 Est GFR ( Amer) > 60 Est GFR (Non-Af Amer) > 60 Glucose 95 Calcium 9.6 Total Bilirubin 0.5 Direct Bilirubin 0.2 Neonat Total Bilirubin Not Reportable Neonat Direct Bilirubin Not Reportable Neonat Indirect Bili Not Reportable AST 33 ALT 35 Alkaline Phosphatase 83 C-Reactive Protein Total Protein 7.2 Albumin 4.7 Serum HCG, Qual NEGATIVE 07/05/18 15:44 WBC RBC Hgb Hct MCV MCH MCHC RDW Plt Count Seg Neutrophils % Lymphocytes % Monocytes % Eosinophils % Basophils % Absolute Neutrophils Absolute Lymphocytes Absolute Monocytes Absolute Eosinophils Absolute Basophils Sodium Potassium Chloride Carbon Dioxide Anion Gap BUN Creatinine Est GFR ( Amer) Est GFR (Non-Af Amer) Glucose Calcium Total Bilirubin Direct Bilirubin Neonat Total Bilirubin Neonat Direct Bilirubin Neonat Indirect Bili AST ALT Alkaline Phosphatase C-Reactive Protein < 5.0 Total Protein Albumin Serum HCG, Qual - Vital Signs Vital signs: Temp Pulse Resp BP Pulse Ox 99.0 F 88 12 119/59 L 98 07/05/18 15:20 07/05/18 15:20 07/05/18 15:20 07/05/18 15:20 07/05/18 15:20 - Laboratory Result Diagrams: 07/05/18 15:44 07/05/18 15:44 Laboratory results interpreted by me: 07/05/18 15:44 RDW 14.1 H Discharge - Discharge Clinical Impression: Rectal bleeding Condition: Stable Disposition: HOME, SELF-CARE Instructions: Rectal Bleeding, Unclear Cause ([facility]) Additional Instructions: Please follow-up with surgery or gastroenterology, call for an appointment on Saturday. If you develop lightheadedness, or passing out episodes, please immediately return to the emergency department. Referrals: DAVID DIAMOND MD [CLINICAL TRIAL EDUCATOR] - Follow up in 3-5 days HAL SWEET MD [ACTIVE STAFF] - Follow up in 3-5 days
[2018-07-05 16:34] LABS: ALANINE AMINOTRANSFERASE 35 U/L (9-52); ALBUMIN 4.7 g/dL (3.5-5.0); ALKALINE PHOSPHATASE 83 U/L (38-126); ANION GAP 12 (5-19); ASPARTATE AMINO TRANSFERASE 33 U/L (14-36); BILIRUBIN,DIRECT 0.2 mg/dL (0.0-0.4); BILIRUBIN,TOTAL 0.5 mg/dL (0.2-1.3); BLOOD UREA NITROGEN 17 mg/dL (7-20); CALCIUM 9.6 mg/dL (8.4-10.2); CARBON DIOXIDE 27 mmol/L (22-30); CHLORIDE 103 mmol/L (98-107); GLUCOSE 95 mg/dL (75-110); POTASSIUM 4.2 mmol/L (3.6-5.0); SODIUM 142.2 mmol/L (137-145); TOTAL PROTEIN 7.2 g/dL (6.3-8.2)
== END 2018-07-05 17:24 | disposition home or self-care (01) ==
LOC: ER 15:17
DX: K62.5 Hemorrhage of anus and rectum (principal); Z87.442 Personal history of urinary calculi; Z88.0 Allergy status to penicillin
CPT/HCPCS: 36415; 80053; 84703; 85025; 86140; 99283

== ENCOUNTER 2018-12-10 08:39 | Inpatient (IN) | payer BC, OTHER ==
[2018-12-10] MEDS ORDERED: ONDANSETRON HCL INJ/PF 4 MG/2 ML SDV IV ONE ×2 (09:45→14:59)
--- NOTE | 2018-12-10 09:47 | ER Document Report ---
ED Medical Screen (RME) - General Chief Complaint: Nausea/Vomiting/Diarrhea Stated Complaint: VOMITING Time Seen by Provider: 12/10/18 09:42 TRAVEL OUTSIDE OF THE [place] IN LAST 30 DAYS: No - HPI Notes: 12/10/18 09:46 Patient is a 22-year-old female with a history of medullary sponge kidney who presents the emergency department planing of nausea and vomiting that began yesterday. Patient states that she had a fever and diarrhea yesterday which have both resolved. Patient believes that this illness may be viral, but has not been able to eat or drink since yesterday and feels dehydrated. Denies FLOREZ, fever, neck pain, URI, CP, SOB, Abd pain, or rash. I have treated and performed a rapid initial assessment of this patient. A comprehensive ED assessment and evaluation of the patient, analysis of test results and completion of medical decision making process will be conducted by additional ED providers. PHYSICAL EXAMINATION: GENERAL: Well-appearing, well-nourished and in no acute distress. A&Ox4. Answers questions appropriately. LUNGS: Breath sounds clear to auscultation bilaterally and equal. No wheezes rales or rhonchi. HEART: Regular rate and rhythm without murmurs, rubs, gallops. ABDOMEN: Soft, nondistended abdomen. No guarding, no rebound. Normal bowel sounds present. No CVA tenderness bilaterally. nontender (cannot elicit thorough abd exam w/o table, however). - Related Data Allergies/Adverse Reactions: amoxicillin Allergy (Verified 12/10/18 09:35) doxycycline Allergy (Verified 12/10/18 09:35) milk Allergy (Verified 12/10/18 09:35) polyethylene glycol 3350 [From Miralax] Allergy (Verified 12/10/18 09:35) Past Medical History - Social History Frequency of alcohol use: None Drug Abuse: None Renal/ Medical History: Reports: Hx Kidney Stones. Denies: Hx Peritoneal Dialysis Past Surgical History: Reports: Hx Tonsillectomy - Immunizations Hx Diphtheria, Pertussis, Tetanus Vaccination: Yes History of Influenza Vaccine for 05/2017 - 10/2017 Season: No Physical Exam - Vital signs Vitals: Temp Pulse Resp BP Pulse Ox 98.3 F 96 16 100/62 97 12/10/18 08:46 12/10/18 08:46 12/10/18 08:46 12/10/18 08:46 12/10/18 08:46 Course - Vital Signs Vital signs: Temp Pulse Resp BP Pulse Ox 98.3 F 96 16 100/62 97 12/10/18 08:46 12/10/18 08:46 12/10/18 08:46 12/10/18 08:46 12/10/18 08:46
[2018-12-10] MEDS: NORMAL SALINE 1000 ML 1,000 ML IV PRN ×2 (10:31→11:18)
[2018-12-10 10:51] LABS: ABSOLUTE LYMPHOCYTES (AUTO) 0.4 10^3/uL (0.5-4.7); ABSOLUTE MONOCYTES (AUTO) 0.3 10^3/uL (0.1-1.4); ABSOLUTE NEUT (AUTO) 5.2 10^3/uL (1.7-8.2); BASOPHILS % (AUTO) 0.4 % (0-2); EOSINOPHILS % (AUTO) 0.4 % (0-6); HEMATOCRIT 42.8 % (36.0-47.0); LYMPHOCYTES % (AUTO) 6.3 % (13-45); MEAN CORPUSCULAR HEMOGLOBIN 30.9 pg (27.0-33.4); MEAN CORPUSCULAR HGB CONC 35.1 g/dL (32.0-36.0); MEAN CORPUSCULAR VOLUME 88 fl (80-97); MONOCYTES % (AUTO) 5.6 % (3-13); PLATELET COUNT 229 10^3/uL (150-450); RED BLOOD COUNT 4.85 10^6/uL (3.72-5.28); RED CELL DISTRIBUTION WIDTH 12.8 % (11.5-14.0); SEGMENTED NEUTROPHILS % (AUTO) 87.3 % (42-78); TOTAL CELLS COUNTED % (AUTO) 100 %; WHITE BLOOD COUNT 5.9 10^3/uL (4.0-10.5)
[2018-12-10 10:56] LABS: APPEARANCE,URINE SLIGHTLY-CLOUDY; BILIRUBIN,URINE NEGATIVE (NEGATIVE); COLOR,URINE YELLOW; GLUCOSE, URINE NEGATIVE (NEGATIVE); KETONES,URINE NEGATIVE (NEGATIVE); LEUKOCYTE ESTERASE,URINE NEGATIVE (NEGATIVE); NITRITE,URINE NEGATIVE (NEGATIVE); PROTEIN,URINE NEGATIVE (NEGATIVE); URINE SPECIFIC GRAVITY 1.026; UROBILINOGEN,URINE NEGATIVE mg/dL (<2.0)
[2018-12-10 11:08] LABS: ALANINE AMINOTRANSFERASE 35 U/L (9-52); ALBUMIN 4.3 g/dL (3.5-5.0); ALKALINE PHOSPHATASE 80 U/L (38-126); ANION GAP 8 (5-19); ASPARTATE AMINO TRANSFERASE 33 U/L (14-36); BILIRUBIN,DIRECT 0.1 mg/dL (0.0-0.4); BILIRUBIN,TOTAL 0.7 mg/dL (0.2-1.3); BLOOD UREA NITROGEN 13 mg/dL (7-20); CALCIUM 9.5 mg/dL (8.4-10.2); CARBON DIOXIDE 27 mmol/L (22-30); CHLORIDE 103 mmol/L (98-107); GLUCOSE 107 mg/dL (75-110); LIPASE 45.8 U/L (23-300); POTASSIUM 3.6 mmol/L (3.6-5.0); SODIUM 138.4 mmol/L (137-145); TOTAL PROTEIN 7.1 g/dL (6.3-8.2)
[2018-12-10] MEDS ORDERED: DEXTROSE 5%-LACTATED RINGERS 1,000 ML IV ONE ×2 (12:40→16:20)
--- NOTE | 2018-12-10 15:35 | ER Document Report ---
Entered by MIESHA TRAORE SCRIBE 12/10/18 1056 Acting as scribe for:DORINDA GRIJALVA MD ED GI/ - General Chief Complaint: Nausea/Vomiting/Diarrhea Stated Complaint: VOMITING Time Seen by Provider: 12/10/18 09:42 Mode of Arrival: Ambulatory Information source: Patient Notes: 22-year-old female who presents to the emergency department today with complaints of nausea, vomiting, and diarrhea which began yesterday at 1300. Patient states she had x2 episodes of diarrhea yesterday and none today. Patient states between yesterday and today she thinks she has vomited about 10 times. Patient states last night she developed a fever of 102 F but was able to take and keep down Tylenol and Motrin. Patient states her last menstrual period was 11/12. Patient states her had similar symptoms last week. Patient has been lightheaded today but denies any abdominal pain, cough, or runny nose. Patient was seen at an urgent care yesterday and prescribed Tamiflu and Zofran. She did not start taking the Tamiflu. She did try the Zofran and it did not help. She was put on cefdinir on 11/28/2018 through 12/07/2018 for a sinus infection. She does respond report her spouse had similar symptoms a week ago but his symptoms have completely resolved. TRAVEL OUTSIDE OF THE [place] IN LAST 30 DAYS: No - Related Data Allergies/Adverse Reactions: amoxicillin Allergy (Verified 12/10/18 09:35) doxycycline Allergy (Verified 12/10/18 09:35) milk Allergy (Verified 12/10/18 09:35) polyethylene glycol 3350 [From Miralax] Allergy (Verified 12/10/18 09:35) Past Medical History - General Information source: Patient - Social History Smoking Status: Never Smoker Cigarette use (# per day): No Frequency of alcohol use: None Drug Abuse: None Lives with: Family Family History: Reviewed & Not Pertinent Patient has suicidal ideation: No Patient has homicidal ideation: No Renal/ Medical History: Reports: Hx Kidney Stones Past Surgical History: Reports: Hx Tonsillectomy - Immunizations Hx Diphtheria, Pertussis, Tetanus Vaccination: Yes Review of Systems - Review of Systems Constitutional: No symptoms reported EENT: denies: Nose congestion Cardiovascular: No symptoms reported Respiratory: denies: Cough Gastrointestinal: See HPI, Diarrhea, Nausea, Vomiting. denies: Abdominal pain Genitourinary: No symptoms reported Female Genitourinary: No symptoms reported Musculoskeletal: No symptoms reported Skin: No symptoms reported Hematologic/Lymphatic: No symptoms reported Neurological/Psychological: No symptoms reported -: Yes All other systems reviewed and negative Physical Exam - Vital signs Vitals: Temp Pulse Resp BP Pulse Ox 98.3 F 96 16 100/62 97 12/10/18 08:46 12/10/18 08:46 12/10/18 08:46 12/10/18 08:46 12/10/18 08:46 - Notes Notes: Physical Exam: General: Alert, appears well. HEENT: Normocephalic. Atraumatic. PERRL. Extraocular movements intact. Oropharynx clear. Dry mucous membranes. Neck: Supple. Non-tender. Respiratory: No respiratory distress. Clear and equal breath sounds bilaterally. Cardiovascular: Regular rate and rhythm. Abdominal: Normal Inspection. Non-tender. No distension. Normal Bowel Sounds. Back: Non-tender. No deformity or step off. Extremities: Moves all four extremities. Upper extremities: Normal inspection. Normal ROM. Lower extremities: Normal inspection. No edema. Normal ROM. Neurological: Normal cognition. AAOx4. Normal speech. Psychological: Normal affect. Normal Mood. Skin: Warm. Dry. Normal color. Course - Re-evaluation Re-evalutation: 12/10/18 12:43 Patient reports that she is feeling much better, has not urinated yet. I will give her an additional liter of IV fluids. 12/10/18 14:30 The patient returned from the restroom, she has only sipped a little bit of water. She states she thinks all the fluid went right through her because she had a large diarrheal stool in the bathroom. 12/10/18 15:00 The patient did try drinking the fluids that she had been provided earlier, and began vomiting. - Vital Signs Vital signs: Temp Pulse Resp BP Pulse Ox 97.8 F 92 15 103/63 100 12/10/18 14:47 12/10/18 14:47 12/10/18 14:47 12/10/18 14:47 12/10/18 14:47 - Laboratory Result Diagrams: 12/10/18 10:45 12/10/18 10:45 Laboratory results interpreted by me: 12/10/18 10:45 Seg Neutrophils % 87.3 H Lymphocytes % 6.3 L Absolute Lymphocytes 0.4 L - Consults Dr. Wisdom Time consulted: 17:15 Consulted provider: will come to ER Discharge - Discharge Clinical Impression: Nausea, vomiting and diarrhea, Clostridium difficile diarrhea Condition: Stable Disposition: ADMITTED INPATIENT Admitting Provider: Artis (Hospitalist) Unit Admitted: Medical Floor Scribe Attestation: 12/10/18 11:45 I personally performed the services described in the documentation, reviewed and edited the documentation which was dictated to the scribe in my presence, and it accurately records my words and actions. I personally performed the services described in the documentation, reviewed and edited the documentation which was dictated to the scribe in my presence, and it accurately records my words and actions.
[2018-12-10] MEDS ORDERED: NORMAL SALINE 1000 ML 1,000 ML IV PRN (17:44)
[2018-12-10] MEDS ORDERED: ACETAMINOPHEN 325 MG TABLET PO PRN (17:44)
--- NOTE | 2018-12-10 18:00 | PDOC H&P ---
History of Present Illness Admission Date/PCP: 12/10/2018 Patient complains of: Nausea vomiting diarrhea since yesterday History of Present Illness: RITA MCKEON is a 22 year old female with history of medullary sponge kidney, recurrent kidney stones, celiac disease came to the emergency room with complaints of nausea vomiting and diarrhea since yesterday. In the emergency room she had a large bowel movement associated with nausea and vomiting. She also reported a fever of 102 last night. Patient complaining of being lightheaded today. She went to urgent care yesterday she was prescribed Tamiflu and Zofran. She did not start on Tamiflu. Tried Zofran but did not help. She was on Cefdinir from 11/28/2018 through 12/07/2018 for sinusitis. Probably antibiotic use leading to to C. difficile. On examination patient alert awake oriented communicating well in mild distress. Past Medical History Renal/ Medical History: Reports: Nephrolithiasis, Other - Medullary sponge kidney GI Medical History: Reports: Other - Celiac disease Psychiatric Medical History: Reports: None Past Surgical History Past Surgical History: Reports: Tonsillectomy Social History Lives with: Family Smoking Status: Never Smoker Frequency of Alcohol Use: Occasional Hx Recreational Drug Use: No Drugs: None - Advance Directive Resuscitation Status: Full Code Family History Family History: Reviewed & Not Pertinent Parental Family History Reviewed: Yes - Father with history of diabetes Children Family History Reviewed: Yes Sibling(s) Family History Reviewed.: Yes Medication/Allergy Allergies/Adverse Reactions: amoxicillin Allergy (Verified 12/10/18 09:35) doxycycline Allergy (Verified 12/10/18 09:35) milk Allergy (Verified 12/10/18 09:35) polyethylene glycol 3350 [From Miralax] Allergy (Verified 12/10/18 09:35) Review of Systems Constitutional: PRESENT: fatigue, fever(s). ABSENT: headache(s) Eyes: ABSENT: visual disturbances Ears: ABSENT: hearing changes Nose, Mouth, and Throat: ABSENT: sore throat Cardiovascular: ABSENT: dyspnea on exertion, orthropnea, palpitations Respiratory: ABSENT: dyspnea, hemoptysis Gastrointestinal: PRESENT: abdominal pain, diarrhea, nausea, vomiting Musculoskeletal: ABSENT: joint swelling Neurological: ABSENT: abnormal gait, abnormal speech, confusion, dizziness, focal weakness, syncope Psychiatric: ABSENT: anxiety, depression, homidical ideation, suicidal ideation Physical Exam Vital Signs: Temp Pulse Resp BP Pulse Ox 97.8 F 92 15 103/63 100 12/10/18 14:47 12/10/18 14:47 12/10/18 14:47 12/10/18 14:47 12/10/18 14:47 Intake & Output 12/09/18 12/10/18 12/11/18 06:59 06:59 06:59 Intake Total 2783 Balance 2783 Weight 63.957 kg General appearance: PRESENT: mild distress, well-developed Head exam: PRESENT: atraumatic Eye exam: PRESENT: PERRLA Mouth exam: PRESENT: moist, tongue midline Neck exam: ABSENT: carotid bruit, JVD, lymphadenopathy, thyromegaly Respiratory exam: PRESENT: clear to auscultation nikki. ABSENT: rales, rhonchi, wheezes Cardiovascular exam: PRESENT: tachycardia GI/Abdominal exam: PRESENT: normal bowel sounds, tenderness Rectal exam: PRESENT: deferred Extremities exam: PRESENT: full ROM. ABSENT: calf tenderness, clubbing, pedal edema Neurological exam: PRESENT: alert, awake, oriented to person, oriented to place, oriented to time, oriented to situation, CN II-XII grossly intact. ABSENT: motor sensory deficit Results Laboratory Results: 12/10/18 10:45 12/10/18 10:45 12/10/18 12/10/18 12/10/18 10:45 10:45 10:45 WBC 5.9 RBC 4.85 Hgb 15.0 Hct 42.8 MCV 88 MCH 30.9 MCHC 35.1 RDW 12.8 Plt Count 229 Seg Neutrophils % 87.3 H Lymphocytes % 6.3 L Monocytes % 5.6 Eosinophils % 0.4 Basophils % 0.4 Absolute Neutrophils 5.2 Absolute Lymphocytes 0.4 L Absolute Monocytes 0.3 Absolute Eosinophils 0.0 Absolute Basophils 0.0 Sodium 138.4 Potassium 3.6 Chloride 103 Carbon Dioxide 27 Anion Gap 8 BUN 13 Creatinine 0.63 Est GFR ( Amer) > 60 Est GFR (Non-Af Amer) > 60 Glucose 107 Calcium 9.5 Total Bilirubin 0.7 AST 33 ALT 35 Alkaline Phosphatase 80 Total Protein 7.1 Albumin 4.3 Lipase 45.8 Urine Color YELLOW Urine Appearance SLIGHTLY-CLOUDY Urine pH 5.0 Ur Specific Peck 1.026 Urine Protein NEGATIVE Urine Glucose (UA) NEGATIVE Urine Ketones NEGATIVE Urine Blood NEGATIVE Urine Nitrite NEGATIVE Ur Leukocyte Esterase NEGATIVE Urine WBC (Auto) 3 Urine RBC (Auto) 1 Stool for White Cells 12/10/18 15:30 WBC RBC Hgb Hct MCV MCH MCHC RDW Plt Count Seg Neutrophils % Lymphocytes % Monocytes % Eosinophils % Basophils % Absolute Neutrophils Absolute Lymphocytes Absolute Monocytes Absolute Eosinophils Absolute Basophils Sodium Potassium Chloride Carbon Dioxide Anion Gap BUN Creatinine Est GFR ( Amer) Est GFR (Non-Af Amer) Glucose Calcium Total Bilirubin AST ALT Alkaline Phosphatase Total Protein Albumin Lipase Urine Color Urine Appearance Urine pH Ur Specific Peck Urine Protein Urine Glucose (UA) Urine Ketones Urine Blood Urine Nitrite Ur Leukocyte Esterase Urine WBC (Auto) Urine RBC (Auto) Stool for White Cells NO WBCs SEEN Assessment and Plan - Diagnosis (1) Clostridium difficile diarrhea Is this a current diagnosis for this admission?: Yes Plan: 12/10/2018-plan to place her in medical floor. To put her on contact isolation. To start on p.o. vancomycin 125 mg every 6 hours. I confirm with the pharmacy that giving p.o. vancomycin is okay in a breast-feeding mother. To start on IV fluids normal saline 100 cc/h. Start on Zofran 4 mg IV every 6 as needed for nausea and vomiting. GI prophylaxis was implemented. Patient is ambulatory no need for DVT prophylaxis. Plan to do the daily labs. Place her on celiac diet. (2) Nausea, vomiting, and diarrhea Is this a current diagnosis for this admission?: Yes Plan: 12/10/2018-patient came in with complaints of nausea vomiting diarrhea. Started on IV fluids, IV Zofran, on p.o. vancomycin for C. difficile treatment. (3) Medullary sponge kidney Is this a current diagnosis for this admission?: No Plan: 12/10/2018-patient is given the history of medullary sponge kidney. The renal function goes down only when she developed kidney stones. Otherwise her renal function is normal. Today her GFR is more than 60 normal. (4) Celiac disease Is this a current diagnosis for this admission?: No Plan: 12/10/2018-patient is given the history of celiac disease. We going to place her on a celiac diet. dietary consult was requested. - Time Time Spent with patient: 25-34 minutes Medications reviewed and adjusted accordingly: Yes Anticipated discharge: Home
[2018-12-10] MEDS: VANCOMYCIN HCL INJ 500 MG VIAL PO SCH (20:50)
[2018-12-10] MEDS: CHOLECALCIFEROL (D3) 1,000 UNIT TABLET PO SCH (20:55)
[2018-12-10] MEDS: FAMOTIDINE 20 MG TABLET PO SCH (20:56)
[2018-12-10] MEDS ORDERED: VANCOMYCIN HCL INJ 500 MG VIAL ONE (23:35)
[2018-12-11] MEDS ORDERED: ONDANSETRON HCL INJ/PF 4 MG/2 ML SDV ONE (00:07)
[2018-12-11] MEDS ORDERED: ONDANSETRON HCL INJ/PF 4 MG/2 ML SDV IV PRN (00:11)
[2018-12-11] MEDS: VANCOMYCIN HCL INJ 500 MG VIAL PO SCH ×3 (01:00→12:21)
[2018-12-11] MEDS: FAMOTIDINE 20 MG TABLET PO SCH (05:38)
[2018-12-11 06:45] LABS: ABSOLUTE LYMPHOCYTES (AUTO) 0.5 10^3/uL (0.5-4.7); ABSOLUTE MONOCYTES (AUTO) 0.4 10^3/uL (0.1-1.4); BASOPHILS % (AUTO) 0.9 % (0-2); EOSINOPHILS % (AUTO) 0.8 % (0-6); HEMATOCRIT 37.1 % (36.0-47.0); LYMPHOCYTES % (AUTO) 13.6 % (13-45); MEAN CORPUSCULAR HEMOGLOBIN 30.6 pg (27.0-33.4); MEAN CORPUSCULAR HGB CONC 34.7 g/dL (32.0-36.0); MEAN CORPUSCULAR VOLUME 88 fl (80-97); MONOCYTES % (AUTO) 9.1 % (3-13); PLATELET COUNT 195 10^3/uL (150-450); RED BLOOD COUNT 4.21 10^6/uL (3.72-5.28); RED CELL DISTRIBUTION WIDTH 12.7 % (11.5-14.0); SEGMENTED NEUTROPHILS % (AUTO) 75.6 % (42-78); TOTAL CELLS COUNTED % (AUTO) 100 %
[2018-12-11 06:47] LABS: HEMOGLOBIN 12.9 g/dL (12.0-15.5)
[2018-12-11 06:56] LABS: ALANINE AMINOTRANSFERASE 36 U/L (9-52); ALBUMIN 3.3 g/dL (3.5-5.0); ALKALINE PHOSPHATASE 62 U/L (38-126); ANION GAP 5 (5-19); ASPARTATE AMINO TRANSFERASE 30 U/L (14-36); BILIRUBIN,DIRECT 0.1 mg/dL (0.0-0.4); BILIRUBIN,TOTAL 0.4 mg/dL (0.2-1.3); BLOOD UREA NITROGEN 6 mg/dL (7-20); CALCIUM 9.1 mg/dL (8.4-10.2); CARBON DIOXIDE 23 mmol/L (22-30); CHLORIDE 110 mmol/L (98-107); GLUCOSE 93 mg/dL (75-110); POTASSIUM 3.6 mmol/L (3.6-5.0); SODIUM 137.8 mmol/L (137-145); TOTAL PROTEIN 5.8 g/dL (6.3-8.2)
[2018-12-11] MEDS: CHOLECALCIFEROL (D3) 1,000 UNIT TABLET PO SCH (10:30)
[2018-12-11 12:08] VITALS: BP 113/60
--- NOTE | 2018-12-11 13:40 | PDOC DISCHARGE SUMMARY ---
General - Admit/Disc Date/PCP Admission Date/Primary Care Provider: 12/10/18 18:03 Discharge Date: 12/11/18 - Discharge Diagnosis (1) Clostridium difficile diarrhea Is this a current diagnosis for this admission?: Yes Summary: 12/11/2018-patient came into the emergency room with complaints of nausea vomiting severe diarrhea and abdominal discomfort stool culture was positive for C. difficile. Started p.o. vancomycin. Patient still having loose stools. Patient is expressing desire to go home. I explained to her in detail about risks and benefits of leaving the hospital. She understood and wants to go home. sHe says she will take all the necessary precautions like contact isolation. I reluctantly discharge her today. (2) Nausea, vomiting, and diarrhea Is this a current diagnosis for this admission?: Yes Summary: 12/11/[id number]-old female admitted for nausea vomiting and diarrhea nausea vomiting is resolved. Still having the diarrhea. C. difficile was positive. Patient is going home on p.o. vancomycin 125 mg every 6 hours for 7 days. Again I strongly advised her to stay in the hospital for completion of the course but the patient prefers to go home. (3) Medullary sponge kidney Is this a current diagnosis for this admission?: No (4) Celiac disease Is this a current diagnosis for this admission?: No - Additional Information Resuscitation Status: Full Code Discharge Diet: As Tolerated Discharge Activity: Activity As Tolerated Prescriptions: Vancomycin HCl [Vancocin Inj 500 mg Vial] 125 mg PO Q6 #28 vial Home Medications: Vancomycin HCl [Vancocin Inj 500 mg Vial] 125 mg PO Q6 #28 vial 12/11/18 History of Present Illness History of Present Illness: RITA MCKEON is a 22 year old female with history of medullary sponge kidney, recurrent kidney stones, celiac disease came to the emergency room with compla ints of nausea vomiting and diarrhea since yesterday. In the emergency room she had a large bowel movement associated with nausea and vomiting. She also reported a fever of 102 last night. Patient complaining of being lightheaded today. She went to urgent care yesterday she was prescribed Tamiflu and Zofran. She did not start on Tamiflu. Tried Zofran but did not help. She was on Cefdinir from 11/28/2018 through 12/07/2018 for sinusitis. Probably antibiotic use leading to to C. difficile. On examination patient alert awake oriented communicating well in mild distress. Hospital Course Hospital Course: No complications during her stay. Continued to have diarrhea. Physical Exam Vital Signs: Temp Pulse Resp BP Pulse Ox 98 F 81 16 113/60 97 12/11/18 12:08 12/11/18 12:08 12/11/18 12:08 12/11/18 12:08 12/11/18 12:08 Intake & Output 12/10/18 12/11/18 12/12/18 06:59 06:59 06:59 Intake Total 3783 240 Output Total 500 Balance 3783 -260 Weight 63.9 kg General appearance: PRESENT: no acute distress Head exam: PRESENT: atraumatic Eye exam: PRESENT: PERRLA Mouth exam: PRESENT: moist, tongue midline Neck exam: ABSENT: carotid bruit, JVD, lymphadenopathy, thyromegaly Respiratory exam: PRESENT: clear to auscultation nikki. ABSENT: rales, rhonchi, wheezes Cardiovascular exam: PRESENT: RRR. ABSENT: diastolic murmur, rubs, systolic murmur GI/Abdominal exam: PRESENT: normal bowel sounds, soft. ABSENT: distended, guarding, mass, organolmegaly, rebound, tenderness Neurological exam: PRESENT: alert, awake, oriented to person, oriented to place, oriented to time, oriented to situation, CN II-XII grossly intact. ABSENT: motor sensory deficit Psychiatric exam: PRESENT: appropriate affect, normal mood. ABSENT: homicidal ideation, suicidal ideation Results Laboratory Results: 12/11/18 06:07 12/11/18 06:07 12/10/18 12/11/18 12/11/18 15:30 06:07 06:07 WBC 4.0 RBC 4.21 Hgb 12.9 D Hct 37.1 MCV 88 MCH 30.6 MCHC 34.7 RDW 12.7 Plt Count 195 Seg Neutrophils % 75.6 Lymphocytes % 13.6 Monocytes % 9.1 Eosinophils % 0.8 Basophils % 0.9 Absolute Neutrophils 3.0 Absolute Lymphocytes 0.5 Absolute Monocytes 0.4 Absolute Eosinophils 0.0 Absolute Basophils 0.0 Sodium 137.8 Potassium 3.6 Chloride 110 H Carbon Dioxide 23 Anion Gap 5 BUN 6 L Creatinine 0.60 Est GFR ( Amer) > 60 Est GFR (Non-Af Amer) > 60 Glucose 93 Calcium 9.1 Magnesium 1.9 Total Bilirubin 0.4 AST 30 ALT 36 Alkaline Phosphatase 62 Total Protein 5.8 L Albumin 3.3 L Stool for White Cells NO WBCs SEEN Qualifiers - * PATIENT BEING DISCHARGED WITH ANY OF THE FOLLOWING DIAGNOSIS: No VTE patient discharged on overlapping Therapy?: No Plan Discharge Plan: Discharge home. Time Spent: Less than 30 Minutes
== END 2018-12-11 14:43 | disposition home or self-care (01) | DRG 372 ==
LOC: ER 08:39 → EH 18:03 → 4S 22:13
PROVIDERS: ADMIT Internal Medicine; ATTEND Internal Medicine
DX: A04.72 Enterocolitis due to Clostridium difficile, not specified as recurrent (principal); Q61.5 Medullary cystic kidney; K90.0 Celiac disease
CPT/HCPCS: 36415; 80053; 81001; 81025; 83690; 83735; 85025; 87045; 87205; 87493; 89055; 96361; 96374; 96376; 99285; J2405; J3370; J7030